=== PATIENT | male | born 1995 | race Two or more races ===

== ENCOUNTER 2018-07-08 18:36 | Observation (INO) | payer MEDICAID, OTHER ==
[~2018-07-08] VITALS: Ht 167.6 cm; Wt 68.0 kg
[2018-07-08 21:36] LABS: Salicylate 2.7 mg/dL (2.8-20.0)
[2018-07-08 21:37] LABS: Acetaminophen < 2.0 ug/mL (10-30); Alanine Aminotransferase 19 U/L (16-61); Albumin 4.3 g/dL (3.4-5.0); Anion Gap 11 (5-15); Aspartate Aminotransferase 23 U/L (15-37); BUN/Creatinine Ratio 16.8; Blood Alcohol < 3.0 mg/dL (0-5); Blood Urea Nitrogen 16 mg/dL (7-18); Carbon Dioxide 22 mmol/L (21-32); Chloride 108 mmol/L (98-107); GFR African American 125 mL/min; GFR Non-African American 104 mL/min; Glucose 98 mg/dL (74-106); Potassium 3.8 mmol/L (3.5-5.1); Sodium 141 mmol/L (136-145)
[2018-07-08 21:39] LABS: Alkaline Phosphatase 77 U/L (45-117); Basophils # (auto) 0.1 uL; Basophils % (auto) 0.8 % (0.0-2.0); Bilirubin, Total 0.5 mg/dL (0.2-1.0); Eosinophils # (auto) 0.2 uL; Eosinophils % (auto) 2.5 % (0.0-7.0); Hematocrit 39.8 % (41.0-53.0); Hemoglobin 13.5 g/dL (13.5-17.5); Lymphocytes % (auto) 32.5 % (10.0-50.0); Mean Corpuscular Hemoglobin 29.9 pg (28.0-32.0); Mean Corpuscular Volume 87.9 fL (80.0-100.0); Monocytes # (auto) 0.9 uL; Monocytes % (auto) 9.2 % (0.0-12.0); Neutrophils # (auto) 5.1 uL; Nucleated Red Blood Cells % 0.1 %; Platelet Count (auto) 339 10^3/uL (140-450); Red Blood Cells 4.52 10^6/uL (4.5-5.90); Red Cell Distribution Width 13.1 % (11.8-14.3); Total Protein 7.6 g/dL (6.4-8.2); White Blood Cell 9.3 10^3/uL (4.4-10.8)
[2018-07-08] MEDS ORDERED: SODIUM CHLORIDE 0.9% 1,000 ML IV ONE (23:00)
[2018-07-09 00:05] LABS: Amphetamine Screen, Urine POSITIVE (NEGATIVE); Barbiturate Scree,Urine NEGATIVE (NEGATIVE); Benzodiazephine Screen, Urine NEGATIVE (NEGATIVE); Cannabinoid Screen, Urine POSITIVE (NEGATIVE); Cocaine Screen, Urine NEGATIVE (NEGATIVE); Opiate Scree,Urine NEGATIVE (NEGATIVE); Phencyclidine Screen, Urine NEGATIVE (NEGATIVE)
[2018-07-10] MEDS ORDERED: LORazepam 0.5 MG TAB PO PRN (08:15)
[2018-07-10 19:12] VITALS: BP 110/64
== END 2018-07-10 19:12 | disposition short-term general hospital (02) | DRG 753 ==
LOC: EDBD 18:39 → ER 18:39 → OVERFLOW 18:40 → ER 07-10 19:12
PROVIDERS: ADMIT Anesthesiology; ATTEND Anesthesiology
DX: F31.9 Bipolar disorder, unspecified (principal); F12.10 Cannabis abuse, uncomplicated; F15.10 Other stimulant abuse, uncomplicated; F17.210 Nicotine dependence, cigarettes, uncomplicated; F41.9 Anxiety disorder, unspecified; Z59.0 Homelessness
CPT/HCPCS: 36415; 80053; 80307; 80320; 80329; 85025; 96360; 99285; G0378